=== PATIENT | female | born 1990 | race Caucasian/White ===

== ENCOUNTER 2017-03-17 18:07 | Emergency (ER) | payer MEDICAID ==
[~2017-03-17] VITALS: Ht 177.8 cm; Wt 98.8 kg
[~2017-03-17 18:07] MED LIST: IBUP-1222 PO; OXYC-302 PO; PREN1TAB60 PO
[2017-03-17 18:18] VITALS: BP 142/79
[2017-03-17 20:38] LABS: BLOOD UREA NITROGEN 7 mg/dL (7-18)
== END 2017-03-17 21:02 | disposition left against medical advice (07) ==
LOC: ED 20:30
DX: M54.5 Low back pain (principal); W01.0XXA Fall on same level from slipping, tripping and stumbling without subsequent striking against object, initial encounter; Y93.89 Activity, other specified; Y99.8 Other external cause status; Y92.89 Other specified places as the place of occurrence of the external cause
CPT/HCPCS: 36415; 80048; 82040; 84702; 84703; 85025; 99284

== ENCOUNTER 2020-01-01 13:36 | Emergency (ER) | payer SELFPAY ==
[~2020-01-01] VITALS: Ht 177.8 cm; Wt 101.2 kg
[2020-01-01 13:39] VITALS: BP 125/74
--- NOTE | 2020-01-01 14:00 | NUR ---
PT HERE FOR SWELLING OF JOS UPPER AND LOWER EXT. STATES IT STARTED YESTERDAY. DENIES EATING ANYTHING NEW, DENIES ALLERGIES. PT RESTING ON GURNEY. NADN. VERY SLIGHT SWELLING OF HANDS NOTED, NONE OF FEET. PT STATES SHE IS ITCHY EVERYWHERE. PA AT BEDSIDE ASSESSING PT NOW.
[2020-01-01 14:03] LABS: BASOPHILS # (AUTO) 0.01 x10^3/uL (0-0.1); BASOPHILS % (AUTO) 0 % (0-1); EOSINOPHILS # (AUTO) 0.06 x10^3/uL (0-0.4); EOSINOPHILS % (AUTO) 1 % (1-7); LYMPHOCYTES # (AUTO) 0.77 x10^3/uL (1-3.4); LYMPHOCYTES % (AUTO) 16 % (22-44); MD NO; MEAN CORPUSCULAR HEMOGLOBIN 30.4 pg (27.0-34.8); MEAN CORPUSCULAR HGB CONC 33.4 g/dL (32.4-35.8); MEAN CORPUSCULAR VOLUME 91.1 fL (80-100); MEAN PLATELET VOLUME 6.9 fL (7.4-10.4); MONOCYTES # (AUTO) 0.33 x10^3/uL (0.2-0.8); MONOCYTES % (AUTO) 7 % (2-9); NEUTROPHILS # (AUTO) 3.65 x10^3/uL (1.8-6.8); NEUTROPHILS % (AUTO) 76 % (42-75); PLATELET COUNT 412 x10^3/uL (130-400); RED BLOOD COUNT 4.46 x10^6/uL (3.82-5.3); RED CELL DISTRIBUTION WIDTH 13.4 % (9.6-15.2)
[2020-01-01] MEDS ORDERED: FAMOTIDINE 20 MG TABLET ONE (14:06)
--- NOTE | 2020-01-01 14:09 | NUR ---
PT MEDICATED PER EMAR. REQUESTING PAIN MEDICATION.
[2020-01-01 14:10] LABS: ALBUMIN 3.2 g/dL (3.4-5.0); ANION GAP 7 mmol/L (5-15); CALCIUM 8.6 mg/dL (8.5-10.1); CHLORIDE 109 mmol/L (98-107)
[2020-01-01 14:15] LABS: ALANINE AMINOTRANSFERASE 67 U/L (12-78); ALKALINE PHOSPHATASE 129 U/L (45-117); BILIRUBIN,TOTAL 0.4 mg/dL (0.2-1.0); TOTAL PROTEIN 6.9 g/dL (6.4-8.2)
[2020-01-01] MEDS ORDERED: KETOROLAC 30 MG/1 ML ONE (14:18)
--- NOTE | 2020-01-01 14:20 | NUR ---
PT MEDICATED PER EMAR.
[2020-01-01] MEDS ORDERED: FAMOTIDINE 20 MG TABLET PO ONE (14:30)
[2020-01-01] MEDS ORDERED: KETOROLAC 30 MG/1 ML IM ONE (14:30)
== END 2020-01-01 15:06 | disposition home or self-care (01) ==
LOC: ED 14:45
DX: T78.40XA Allergy, unspecified, initial encounter (principal); M79.672 Pain in left foot; M79.671 Pain in right foot; M79.642 Pain in left hand; M79.641 Pain in right hand; X58.XXXA Exposure to other specified factors, initial encounter
CPT/HCPCS: 36415; 80053; 85025; 96372; 99284; J1885; J7512; Q0177

== ENCOUNTER 2021-06-04 04:32 | Emergency (ER) | payer MEDICAID, OTHER ==
[~2021-06-04] VITALS: Ht 175.3 cm; Wt 106.2 kg
[~2021-06-04 04:32] MED LIST changes: -OXYC-302 PO; +OXYC1TAB14 PO
--- NOTE | 2021-06-04 05:42 | NUR ---
PT WHEELED TO ROOM, ACTIVELY HYPERVENTILATING AND MAKING LOUD MOANS. PT AIRWAY INTACT. PT VOMITING DARK COLORED FLUIDS. PT PLACED IN ROOM, AND CHANGED INTO GOWN, ALL WHILE HYPERVENTILATING AND YELLING. AT WHICH POINT THE PT BEGAN TO CRAMP IN HER HANDS AND TO FREAK OUT OVER IT. PT TOLD TO SLOW HER BREATHING DOWN AND COACHED TO BREATH IN BY NOSE, AND OUT BY MOUTH TO SLOW HER BREATHING DOWN. PT ON CR MONITOR, AND BREATHING CONTROLLED. PT WAITING TO SEE MD. PTS SO AT BEDSIDE.
[2021-06-04] MEDS ORDERED: ONDANSETRON 2MG/ML, 2ML IVPush ONE (06:30)
[2021-06-04] MEDS ORDERED: MORPHINE SULFATE 4 MG/ML, 1ML IVPush PRN (06:30)
[2021-06-04] MEDS ORDERED: SODIUM CHLORIDE 0.9% 1,000ML IVBOLUS ONE (06:30)
[2021-06-04] MEDS ORDERED: SODIUM CHLORIDE FLUSH 10ML SYR IVF ONE (06:30)
--- NOTE | 2021-06-04 06:40 | NUR ---
MD TO SEE PT, AND ORDERS RECEIVED. PIV TO RIGHT AC STARTED AND IVF NS 1LITER STARTED PER MD ORDER. UA COLLECTED AND BLOOD COLLECTED AND BOTH SENT TO LAB.
[2021-06-04] MEDS ORDERED: ONDANSETRON 2MG/ML, 2ML ONE (06:42)
[2021-06-04] MEDS ORDERED: MORPHINE SULFATE 4 MG/ML, 1ML ONE (06:43)
--- NOTE | 2021-06-04 06:46 | NUR ---
PT MEDICATED PER MD ORDERS, SEE EMAR. PT MORE CALM, REMAINS ON CR MONITOR, AND IN BED. C/O FEELING HOT AND COLD STILL, AND NOT CONTROLLED.
[2021-06-04 06:48] LABS: BASOPHILS % (AUTO) 0 % (0-1); EOSINOPHILS % (AUTO) 0 % (1-7); LYMPHOCYTES % (AUTO) 14 % (22-44); MEAN CORPUSCULAR HEMOGLOBIN 31.9 pg (27.0-34.8); MEAN PLATELET VOLUME 7.5 fL (7.4-10.4); MONOCYTES % (AUTO) 5 % (2-9); NEUTROPHILS % (AUTO) 80 % (42-75); PLATELET COUNT 391 x10^3/uL (130-400); RED BLOOD COUNT 4.55 x10^6/uL (3.82-5.3); RED CELL DISTRIBUTION WIDTH 13.3 % (9.6-15.2)
--- NOTE | 2021-06-04 06:50 | NUR ---
REPORT TO YAMILE CALLAHAN.
--- NOTE | 2021-06-04 07:02 | NUR ---
LIGHTS DIMMED IN ROOM. PT RESTING WITH EYES CLOSED. NAD NOTED AT THIS TIME. SIDE RAILS UP, CALL LIGHT IN REACH. IVF INFUSING. AWAITING RESULTS.
[2021-06-04 07:07] LABS: ANION GAP 7 mmol/L (5-15); CALCIUM 9.2 mg/dL (8.5-10.1); CHLORIDE 107 mmol/L (98-107)
[2021-06-04 07:11] LABS: ALANINE AMINOTRANSFERASE 28 U/L (12-78); ALKALINE PHOSPHATASE 90 U/L (45-117); BILIRUBIN,TOTAL 1.2 mg/dL (0.2-1.0); CREATININE 0.57 mg/dL (0.55-1.02); TOTAL PROTEIN 8.1 g/dL (6.4-8.2)
[2021-06-04 07:11] LABS: MICROSCOPIC INDICATED
--- NOTE | 2021-06-04 08:12 | NUR ---
PT ASLEEP IN BED, RESPIRATIONS EVEN AND UNLABORED. NAD NOTED AT THIS TIME. SIDE RAILS UP, CALL LIGHT IN REACH.
[2021-06-04 08:40] VITALS: BP 102/64
== END 2021-06-04 09:24 | disposition home or self-care (01) ==
LOC: ED 05:54
DX: N30.00 Acute cystitis without hematuria (principal); R11.2 Nausea with vomiting, unspecified; E86.0 Dehydration; M79.10 Myalgia, unspecified site; R51.9 Headache, unspecified; Z88.0 Allergy status to penicillin; Z88.5 Allergy status to narcotic agent
CPT/HCPCS: 36415; 80053; 81001; 83605; 83690; 85025; 87086; 96361; 96374; 96375; 99285; J2270; J2405; J7030

== ENCOUNTER 2021-06-09 08:15 | Emergency (ER) | payer MEDICAID ==
[~2021-06-09] VITALS: Ht 175.3 cm; Wt 90.0 kg
[2021-06-09] MEDS ORDERED: DIPHENHYDRAMINE 50 MG/ML, 1ML ONE (08:38)
[2021-06-09] MEDS ORDERED: HALOPERIDOL 5 MG/ML ONE (08:38)
--- NOTE | 2021-06-09 08:40 | NUR ---
PT PRESENTS TO ED WITH C/O HEADACHE, N/V FOR A FEW WEEKS. STATES SHE WAS SEEN HERE ABOUT A WEEK AGO FOR SIMILAR SX, DX WITH UTI. PRESCRIBED ABX/ZOFRAN, STATES HEADACHE IS MUCH WORSE TODAY. PT IS ACTIVELY DRY HEAVING WIHT SOME EMESIS. EDGAR BENITEZ AT BEDSIDE FOR EVAL/ASSESSMENT
--- NOTE | 2021-06-09 08:50 | NUR ---
PT MEDICATED PER ORDER, TOLERATED WELL. FLUIDS INFUSING, RESPS EVEN AND UNLABORED, VSS, ALL MONITORS ATTACHED NSR. CALL LIGHT IN REACH, LAB AT BEDSIDE.
[2021-06-09] MEDS ORDERED: HALOPERIDOL 5 MG/ML IV ONE (09:00)
[2021-06-09] MEDS ORDERED: SODIUM CHLORIDE 0.9% 1,000ML IVBOLUS ONE (09:00)
[2021-06-09] MEDS ORDERED: DIPHENHYDRAMINE 50 MG/ML, 1ML IVPush ONE (09:00)
[2021-06-09 09:03] LABS: BASOPHILS % (AUTO) 0 % (0-1); EOSINOPHILS % (AUTO) 0 % (1-7); LYMPHOCYTES % (AUTO) 15 % (22-44); MEAN CORPUSCULAR HEMOGLOBIN 31.4 pg (27.0-34.8); MEAN PLATELET VOLUME 7.7 fL (7.4-10.4); MONOCYTES % (AUTO) 5 % (2-9); NEUTROPHILS % (AUTO) 80 % (42-75); PLATELET COUNT 355 x10^3/uL (130-400); RED CELL DISTRIBUTION WIDTH 13.3 % (9.6-15.2)
[2021-06-09 09:33] LABS: ALANINE AMINOTRANSFERASE 33 U/L (12-78); ALBUMIN 3.8 g/dL (3.4-5.0); ANION GAP 9 mmol/L (5-15); CALCIUM 8.8 mg/dL (8.5-10.1); CHLORIDE 107 mmol/L (98-107); CREATININE 0.78 mg/dL (0.55-1.02)
[2021-06-09 09:35] LABS: ALKALINE PHOSPHATASE 74 U/L (45-117); BILIRUBIN,TOTAL 0.5 mg/dL (0.2-1.0); TOTAL PROTEIN 7.4 g/dL (6.4-8.2)
[2021-06-09 10:30] VITALS: BP 108/48
--- NOTE | 2021-06-09 10:32 | NUR ---
PT AMBULATORY TO RESTROOM WITH STEADY GAIT, VSS, NADN
--- NOTE | 2021-06-09 11:16 | NUR ---
discharge instructions reviewed, pt educated on prescription for Phenergan, follow-up, and return criteria, verbalized understanding. PIV dc'd with tip intactjazmín nadn. Addendum: 06/09/21 at 1117 by ELAINE discharge instructions reviewed, pt educated on prescription for Phenergan, follow-up, and return criteria, verbalized understanding. PIV dc'd with tip intactjazmín nadn. tolerated PO, ambulatory to discharge with steady gait, educated not to drive.
== END 2021-06-09 11:20 | disposition home or self-care (01) ==
LOC: ED 08:48
DX: R11.2 Nausea with vomiting, unspecified (principal); F12.29 Cannabis dependence with unspecified cannabis-induced disorder; R11.10 Vomiting, unspecified; Z88.0 Allergy status to penicillin; Z88.5 Allergy status to narcotic agent; Z88.1 Allergy status to other antibiotic agents
CPT/HCPCS: 36415; 80053; 85025; 96361; 96374; 96375; 99284; J1200; J1630; J7030